=== PATIENT | male | born 1990 | race Caucasian/White ===

== ENCOUNTER 2019-01-17 06:36 | Day surgery (SDC) | payer OTHER ==
[~2019-01-17 06:36] MED LIST: CEFAZOLIN 2 GM/50 ML (PMX) 50 ML IVPB
[2019-01-17] MEDS: SOD CHLORIDE 0.9% 1,000 ML IV (07:32)
[2019-01-17] MEDS ORDERED: FENTAnyl 50 MCG/ML VIAL IV ×3 (09:00)
[2019-01-17] MEDS ORDERED: HYDROmorphONE 1 MG/5 ML IV SYRINGE IV ×3 (09:00)
[2019-01-17] MEDS ORDERED: TRIMETHOBENZAMIDE 100 MG/ML VIAL IM (09:00)
[2019-01-17] MEDS ORDERED: MIDAZOLAM 1 MG/ML 2 ML INJ IV (09:00)
[2019-01-17] MEDS ORDERED: EPHEDrine 25 MG/5 ML SYG IV (09:00)
[2019-01-17] MEDS ORDERED: ONDANSETRON 4 MG INJ IV (09:00)
[2019-01-17] MEDS ORDERED: IPRATROPIUM (NEB) 0.5 MG/2.5 ML AMP HHN (09:00)
[2019-01-17] MEDS ORDERED: LABETALOL HCL 20MG INJ IV (09:00)
[2019-01-17] MEDS ORDERED: MEPERIDINE 25 MG INJ IV (09:00)
[2019-01-17] MEDS ORDERED: DIPHENHYDRAMINE 50 MG INJ IV (09:00)
[2019-01-17] MEDS ORDERED: OXYCODONE/ACETAMINOPHEN (5/325) TAB PO ×2 (09:00)
[2019-01-17] MEDS ORDERED: hydrALAzine 20 MG INJ IV (09:00)
[2019-01-17] MEDS ORDERED: ALBUTEROL 0.083% (NEB) 2.5 MG/3 ML AMP HHN (09:00)
[2019-01-17] MEDS ORDERED: MIDAZOLAM 1 MG/ML 2 ML INJ (09:14)
[2019-01-17] MEDS ORDERED: ONDANSETRON 4 MG INJ (09:14)
[2019-01-17] MEDS: LIDOCAINE 2% (MDV) 20 ML INJ (09:40)
[2019-01-17] MEDS: BUPIVACAINE 0.5% (SDV) 30 ML INJ (09:40)
[2019-01-17] MEDS ORDERED: HYDROCODONE/APAP (5/325) TAB PO (10:00)
== END 2019-01-17 10:45 | disposition home or self-care (01) ==
LOC: SDS 06:36
DX: L90.5 Scar conditions and fibrosis of skin (principal); J45.909 Unspecified asthma, uncomplicated
CPT/HCPCS: 14020; 88307